=== PATIENT | male | born 1940 | race Caucasian/White ===

== ENCOUNTER 2018-11-20 09:13 | Day surgery (SDC) | payer MEDICARE, OTHER ==
[2018-11-20] VITALS (23 sets, daily range): BP systolic 117–150; BP diastolic 67–88; PULSE 80–98; RESP 12–19; Ht 162.6 cm; Wt 75.0 kg
[~2018-11-20] VITALS: Ht 162.6 cm; Wt 75.0 kg
--- NOTE | 2018-11-20 09:31 | HPN ---
Date/Time of Note Date/Time of Note DATE: 11/20/18 TIME: 09:31 Interval H&P Admission Note Pt. seen H&P reviewed: No system changes HUY BOWSER MD Nov 20, 2018 09:31
--- NOTE | 2018-11-20 09:43 | PREAC ---
Date/Time of Note Date/Time of Note DATE: 11/20/18 TIME: 09:41 Anesthesia Eval and Record Evaluation Time Pre-Procedure Interview DATE: 11/20/18 TIME: 09:41 Age 78 Sex male NPO: 8 hrs Preoperative diagnosis right kidney stone Planned procedure cystoscopy, right jj stent, lasr lithotripsy Past Medical History Past Medical History: Includes Cardio: HTN, Dyslipidemia, CAD, CABG, PTCA/Stent Endo: Diabetes Surgery & Anesthesia Issues No known issue Meds Anticoagulation: No Beta Benedicto within 24 hr: No Reason Beta Benedicto not given: Pt. not on B-Benedicto Current Medications Ceftriaxone Sodium (Rocephin) 1 gm ONCE ONCE IVPB ; Start 11/20/18 at 10:00; Stop 11/20/18 at 10:01; Status UNV Meds reviewed: Yes Allergies Allergies Reviewed: Yes Labs/Studies Labs Reviewed: Reviewed by anesthesiologist test: N/A Studies: ECG Pre-procedure Exam Airway: Adequate mouth opening Mallampati: Mallampati I Teeth: Normal Lung: Normal Heart: Normal ASA Physical Status ASA physical status: 2 Emergency: None Planned Anesthetic General/MAC: LMA Planned Pain Management Parenteral pain med Pre-operative Attestations Prior to commencing anesthesia and surgery, the patient was re-evaluated, there was verification of: *The patient's identity *The results of appropriate recent lab work and preoperative vital signs *The above evaluation not changing prior to induction *Anesthetic plan, risk benefits, alternative and complications discussed with patient/family; questions answered; patient/family understands, accepts and wi shes to proceed. HUMA OLIVEIRA MD Nov 20, 2018 09:43
[2018-11-20] MEDS ORDERED: CEFTRIAXONE 1 GM INJ IVPB ONE (10:00)
[2018-11-20] MEDS ORDERED: CEFTRIAXONE 1 GM/NS 50 ML IVPB ONE (10:30)
[2018-11-20] MEDS ORDERED: DIPHENHYDRAMINE 50 MG INJ IV PRN (11:30)
[2018-11-20] MEDS ORDERED: ONDANSETRON 4 MG INJ IV PRN (11:30)
[2018-11-20] MEDS ORDERED: FENTAnyl 50 MCG/ML VIAL IV PRN ×3 (11:30)
[2018-11-20] MEDS ORDERED: MEPERIDINE 25 MG INJ IV PRN (11:30)
[2018-11-20] MEDS ORDERED: HYDROmorphONE 1 MG/5 ML IV SYRINGE IV PRN ×3 (11:30)
[2018-11-20] MEDS ORDERED: OXYCODONE/ACETAMINOPHEN (5/325) TAB PO PRN ×2 (11:30)
[2018-11-20] MEDS ORDERED: LABETALOL HCL 20MG INJ IV PRN (11:30)
[2018-11-20] MEDS ORDERED: hydrALAzine 20 MG INJ IV PRN (11:30)
[2018-11-20] MEDS ORDERED: METOCLOPRAMIDE 10 MG INJ ONE (11:36)
[2018-11-20] MEDS ORDERED: ONDANSETRON 4 MG INJ ONE (11:36)
[2018-11-20] MEDS ORDERED: FENTAnyl 50 MCG/ML VIAL ONE ×2 (11:36→12:05)
[2018-11-20] MEDS ORDERED: PROPOFOL 20 ML ONE ×2 (11:36→12:06)
[2018-11-20] MEDS ORDERED: EPHEDrine 25 MG/5 ML SYG ONE (11:58)
--- NOTE | 2018-11-20 13:14 | OPR ---
Date/Time of Note Date/Time of Note DATE: 11/20/18 TIME: 13:08 Operative Report Procedure Date: Nov 20, 2018 Preoperative Diagnosis Distal right ureteral stone Postoperative Diagnosis Same Operation/Procedure Performed Cystoscopy, right ureteroscopy, laser lithotripsy and insertion of right ureteral JJ stent Surgeon see signature line [employer] Anesthesia Type: general Anesthesiologist: HUMA OLIVEIRA MD Estimated Blood Loss: none Transfusion none Specimen Stone fragments from the right ureter for analysis, urine for culture from the bladder Grafts/Implants none Complications none Pt Condition Post Procedure: stable Disposition: PACU Indications Distal right ureteral stone with obstruction and pain Procedure Description The patient was brought to the operating room and general anesthesia was induced. The patient received 1 g of ceftriaxone IV at the start of the procedure. Timeout was done and the patient was identified by his name,birthdate and the procedure and the side of the procedure. The patient was then positioned in the lithotomy position and the genital area was prepped and draped in the usual sterile manner. A 21 [place] cystoscope sheath was introduced through the penile urethra into the bladder and urine was collected for culture and sensitivity. The right ureteral orifice was identified and then cannulated with a 5 [place] open ended ureteral catheter. A 0.035 zip wire was advanced through the open ended catheter all the way up to the kidney. The open-ended was removed leaving the zip wire in place. The open-ended was then introduced through the second working channel of the scope and the ureteral orifice was cannulated again and a 0.035 sensor wire was passed all the way up to the kidney. The open-ended was removed leaving the sensor wire in place. T hen the cystoscope was removed. The sensor wire was used as a safety wire and the zip wire was used to advance the rigid ureteroscope on it into the ureter. The stone was then visualized and broken with the holmium laser into pieces. These pieces were basketed and dropped into the bladder until the ureter was free of stone fragments. The ureteroscope was then removed. Cystoscopy was done again and the stone fragments were drained out of the bladder. Then the cystoscope was reintroduced into the bladder over the safety wire and a 6 [place] by 22 cm long JJ stent was advanced on the sensor wire, had its proximal end curling into the kidney and the distal end curling into the bladder. The distal end is connected to a string that was taped to the patient's penis. The patient was transferred to recovery room in stable and satisfactory condition HUY BOWSER MD Nov 20, 2018 13:14
[2018-11-20] MEDS ORDERED: HYDROCODONE/APAP (5/325) TAB PO PRN (13:30)
--- NOTE | 2018-11-20 21:27 | PAC ---
Date/Time of Note Date/Time of Note DATE: 11/20/18 TIME: 21:27 Post-Anesthesia Notes Post-Anesthesia Note Last documented vital signs Vital Signs Date Temp Pulse Resp B/P (MAP) Pulse Ox O2 O2 Flow FiO2 Time Delivery Rate 11/20/18 98.2 80 19 124/69 98 Room Air 14:49 (87) 11/20/18 98.3 13:05 Activity: WNL Respiratory function: WNL Cardiovascular function: WNL Mental status: Baseline Pain reasonably controlled: Yes Hydration appropriate: Yes Nausea/Vomiting absent: No HUMA OLIVEIRA MD Nov 20, 2018 21:27
== END 2018-11-20 15:10 | disposition home or self-care (01) ==
LOC: SDS 09:13
PROVIDERS: ATTEND Urology
DX: N20.1 Calculus of ureter (principal); E11.9 Type 2 diabetes mellitus without complications; I10 Essential (primary) hypertension; I25.10 Atherosclerotic heart disease of native coronary artery without angina pectoris; Z95.1 Presence of aortocoronary bypass graft
CPT/HCPCS: 52356; 74430; 82962; 87086; 88300; C2617; J0696; J2405; J2765; J3010